=== PATIENT | male | born 1980 | race Caucasian/White ===

== ENCOUNTER 2022-06-17 08:32 | Outpatient (CLI) | payer OTHER, SELFPAY | END 2022-06-17 08:33 | disposition home or self-care (01) | PROVIDERS: PCP Family Medicine; Visit Provider Family Medicine | DX: Z00.00 Encounter for general adult medical examination without abnormal findings (principal); E78.5 Hyperlipidemia, unspecified; E66.9 Obesity, unspecified | CPT/HCPCS: 80048; 80061 ==

== ENCOUNTER 2023-09-07 08:13 | Outpatient (CLI) | payer OTHER, SELFPAY | END 2023-09-07 08:14 | disposition home or self-care (01) | PROVIDERS: PCP Family Medicine; Visit Provider Family Medicine | DX: Z00.00 Encounter for general adult medical examination without abnormal findings (principal); E78.5 Hyperlipidemia, unspecified; E66.9 Obesity, unspecified; Z13.1 Encounter for screening for diabetes mellitus | CPT/HCPCS: 80048; 80061 ==

== ENCOUNTER 2025-02-28 08:12 | Outpatient (CLI) | payer OTHER, SELFPAY | END 2025-02-28 08:13 | disposition home or self-care (01) | PROVIDERS: PCP Family Medicine; Visit Provider Family Medicine | DX: E78.2 Mixed hyperlipidemia (principal); K76.0 Fatty (change of) liver, not elsewhere classified | CPT/HCPCS: 80053; 80061 ==